=== PATIENT | male | born 1960 | race African-American/Black ===

== ENCOUNTER 2023-01-24 16:38 | Emergency (ER) | payer MEDICAID, OTHER ==
[~2023-01-24] VITALS: Ht 177.8 cm; Wt 77.0 kg
[2023-01-24 16:43] VITALS: O2SAT 97
[2023-01-24 18:35] VITALS: BP 135/87; PULSE 72; RESP 18; TEMP 98.3
== END 2023-01-24 18:37 | disposition home or self-care (01) ==
LOC: ER 16:57
DX: S01.112A Laceration without foreign body of left eyelid and periocular area, initial encounter (principal); R51.9 Headache, unspecified; Z88.0 Allergy status to penicillin; X58.XXXA Exposure to other specified factors, initial encounter; Y93.89 Activity, other specified; Y92.89 Other specified places as the place of occurrence of the external cause; Y99.8 Other external cause status
CPT/HCPCS: 99284